=== PATIENT | female | born 1955 | race Caucasian/White ===

== ENCOUNTER → 2017-09-15 07:05 | Outpatient (CLI) | payer OTHER, SELFPAY ==
[2017-09-15 08:52] LABS: Hemoglobin A1C 6.4 % (0.0-7.0)
[2017-09-15 09:58] LABS: Ferritin 14 ng/mL (8-388)
== END ==
PROVIDERS: Visit Provider Internal Medicine Adolescent Medicine
DX: E11.9 Type 2 diabetes mellitus without complications (principal); Z83.49 Family history of other endocrine, nutritional and metabolic diseases
CPT/HCPCS: 82728; 83036

== ENCOUNTER → 2018-03-02 15:13 | Outpatient (CLI) | payer OTHER, SELFPAY ==
--- NOTE | 2018-03-02 15:16 | MM_ITS ---
MM Dig screening mamm BI w/CAD CAD Screening COMPARISON: Multiple previous studies dating back to December [id number] INDICATION: Routine screening. Takes Premarin/ progesterone. No new complaints. Family history. Aunt with breast cancer--age 50 TECHNIQUE: Standard CC and MLO images were obtained. R2 CAD reviewed. Note.: Images double read: Reviewed by both Dr. Klein & Dr. Ruffin in consultation FINDINGS: Heterogeneous Moderate density breast tissue pattern bilaterally. . There is some very subtle diffuse accentuation of fibroglandular elements compared to old studies from 2013, 2014 suspect reflects some exogenous hormone effect. RIGHT BREAST On MLO view note a 9 mm x 6 mm ovoid density labeled A, which is more apparent today than than on previous studies.. May reflect a small cyst or possibly merely a summation shadow. (Modest size breast cysts have been previously observed on ultrasound studies from 2011, 2010). I would suggest the patient return for spot MLO, 90 degree, & cc views; with subsequent right breast ultrasound On cc view there is a stable area of density labeled B.-This area Unchanged since multiple previous studies; as a small area at the deep lateral right on cc view LEFT BREAST. slightly accentuated breast fibroglandular elements slightly more evident at left left breast.. I suspect this reflects a combination of technique, & exogenous hormone effect. This subtle accentuation of fibroglandular elements most notable compared back to older studies from 2014 & 2013. With this there is perhaps subtle accentuation ductal elements and subtle more nodularity character of the fibroglandular pattern.. Specifically note small area of focal nodularity inferior left breast measuring 5 mm labeled X. This been seen previously slightly more evident today. I suspect it may reflect a small cyst. Also Suspect there are some slight generous ducts possible other smaller cyst at the central breast. Thus when the patient returns suggest a spot views area labeled X at the inferior left breast, along with left breast ultrasound further survey these subtle observations. note: This study was dictated with a voice-recognition system. There may be typographical error is related to such. If they are significant please notify us for corrections ---- IMPRESSION: 1. No prominent findings, but are some minor likely benign feature/observations bilaterally, which would benefit from bilateral spot views & bilateral breast ultrasound. 2. Right Breast:. Vague Ovoid area seen on MLO view, deep upper outer quadrant, labeled A.-. Warrants spot views & ultrasound 3. Left breast.. Tiny round 5 mm area inferior left breast slightly more apparent labeled X.-Warrant spot view & ultrasound 4. Suspect possible small cysts in the above mentioned areas (small cyst were noted on previous breast ultrasound ),, vs merely summation shadow. 5. Incidental note Subtle accentuation of fibroglandular elements bilaterally when compared back to 2014. This likely reflects mild exogenous hormone effect along with slight changes in technique BI-RADS Category: 0 Need Additional Imaging Evaluation. RECOMMENDED FOLLOW-UP: IMM - IMMEDIATE FOLLOW-UP RECOMMENDED (A letter has been sent to the patient regarding results of the study.)
== END ==
PROVIDERS: PCP Internal Medicine Adolescent Medicine; Visit Provider Obstetrics & Gynecology
DX: Z12.31 Encounter for screening mammogram for malignant neoplasm of breast (principal)
CPT/HCPCS: 77067

== ENCOUNTER → 2018-03-07 13:36 | Outpatient (CLI) | payer OTHER, SELFPAY ==
--- NOTE | 2018-03-07 13:37 | US_ITS ---
MM Dig mamm BI DX w/CAD, US breast RT complete, US breast LT complete . COMPARISON: . Recent screening mammogram 03/02/2018. Also April, 2013, 2012 ... December 2011 Ultrasound right breast Dec 2011 & 2010November 2009 INDICATION: Follow-up for further evaluation minimal nodularity bilaterally noted on recent screening mammogram . DIAGNOSTIC BILATERAL MAMMOGRAM with Spot views TECHNIQUE: Full 90 degree view both breast along with bilateral spot views:. Bilateral CC and MLO spot views. Spot right 90 degree view as well FINDINGS Moderate dense heterogeneous breast pattern bilaterally. Slight decrease sensitivity of mammography in breast of this character.. Mild asymmetry mammography. RIGHT BREAST. Small area of density noted at the deep axillary right breast prior MLO view, dissipates on today's 90 degree view.. This density/ possibly may reflect fluctuating cyst likely was present and this area back on 2010 2009 MLO view. Subsequent ultrasound shows multiple cysts including some in this area . scattered minimal nodularity elsewhere right breast very slightly more evident than previous studies. This likely in part reflects slight progression of scattered small cysts as confirm on subsequent ultrasound. Slightly higher contrast technique may also accentuate these and other elements. Other areas of minimal nodularity in part likely reflect small cysts possibly reflecting exogenous hormonal stimulation & can be followed LEFT BREAST: Scattered areas of minimal nodularity & density left breast. Majority of these is been seen previously The area labeled X is slightly more evident on today's study. However there was a feature here dating back to 2010 is noted.- Again may merely be accentuated summation shadow, particularly since we see no corresponding findings on ultrasound.. To be cautious would suggest follow-up left breast mammogram and ultrasound 6-7 months. Other scattered areas of minimal nodularity, density on left stable since studies dating back to even 2010 BILATERAL BREAST ULTRASOUND including Axillary Survey Ultrasound entire right & left breast including axillary survey RIGHT BREAST ULTRASOUND: small cysts more numerous throughout the right breast. Slightly more evident and numerous than previous ultrasound studies. 11:00: septated small cystic area measuring up to 8.7 mm. Matches Similar area seen 2011 towards central breast. 1:00: Small 5.4 mm length cyst 2:00. Tiny 4.2 mm cyst 6:00: Barely evident 3.2 mm cyst 9-10:00.: Outer breast. 2.9 mm cyst of May have been present on previous studies 10:00 outer breast 2.6 mm cyst 11:00. 3.4 mm cyst towards towards more central portion of the breast breast Axillary survey for scattered benign-appearing lymph nodes axilla, including most generous node measuring up to 4 cm length LEFT BREAST ULTRASOUND: . small cysts noted. 2:00: small 6.2 mm cyst mid zone breast 2:00 outer breast. 6.5 mm cyst. No cyst at nor solid feature inferior breast Axillary survey. Few small benign appearing axillary nodes. IMPRESSION......................... 1. Today's Bilateral breast ultrasound demonstrate scattered small cyst in both breasts. These are more numerous & evident right breast. These mainly accounts for slight increasing nodularity in both breast, particularly right breast.. May reflect the Premarin effect 2. LEFT BREAST:. Minimal focal density inferior left breast labeled X, has been seen before, only very slight more apparent on today's mammogram views (possibly due to technique)..-. No corresponding ultrasound Abnormality or findings seen in this area..... Would Suggest Follow-up Left breast ultrasound & mammogram 6 months to further evaluate o
== END ==
PROVIDERS: PCP Internal Medicine Adolescent Medicine; Visit Provider Obstetrics & Gynecology
DX: R92.8 Other abnormal and inconclusive findings on diagnostic imaging of breast (principal)
CPT/HCPCS: 76641; 77066

== ENCOUNTER → 2018-03-21 10:07 | Outpatient (CLI) | payer OTHER, SELFPAY ==
--- NOTE | 2018-03-21 10:09 | XR_ITS ---
XR knee RT 4V HISTORY: Right knee pain ITS.REASON: weightbearing ORDERING PHYSICIAN: Leda Soto MD PATIENT AGE: 62 years COMPARISON: 01/29/2010 FINDINGS: Weightbearing views are performed. There are mild to moderate osteoarthritic changes involving all 3 compartments slightly greatest at the lateral compartment with decrease in the joint space and osteophyte formation laterally and in the patellofemoral joint and slight decrease in the joint space medially. No fracture or dislocation. No lytic or blastic change. There is slight increased soft tissue density in the suprapatellar region which may indicate a small knee joint effusion. IMPRESSION: Mild to moderate osteoarthritic changes as described above which have progressed since 01/29/2010 with possible knee joint effusion
== END ==
PROVIDERS: PCP Internal Medicine Adolescent Medicine; Visit Provider Orthopaedic Surgery
DX: M25.561 Pain in right knee (principal)
CPT/HCPCS: 73564

== ENCOUNTER → 2018-07-19 10:40 | Outpatient (CLI) | payer OTHER, SELFPAY ==
--- NOTE | 2018-07-19 10:44 | CA_ITS ---
PROCEDURE: 2-D M-mode and color Doppler study INDICATIONS FOR THE TEST: Chest pain COPD Heart Murmur Tobacco Smoking Palpitations Fatigue Syncope Edema Hypertension Diabetes MellitusX Rheumatic Fever SOB GRIFFITH Obesity HyperlipidemiaX Family History HDX Additional History PATIENT INFORMATION HEIGHT: 62 WEIGHT:180 GENDER: Female B/P:120/78 2-D/M-MODE INTERPRETATION: 2-D MEASUREMENTS OBSERVED VALUES IN CMS Right Ventricular Dimension (RVDd) 1.9 Interventricular Septum (Thickness)(IVsd) .9 Left Ventricular Internal Dimensions(LVIDd) 5.4 Left Ventricular Posterior Wall (Thickness)(LVPWd) .8 Aortic Root 2.9 Aortic Cusp Separation 1.3 Left Atrial Dimensions (LAD) 3.1 2D 1. Left atrium is qualitatively mildly enlarged, left ventricle is normal size, there is no concentric left ventricular hypertrophy, visually estimated ejection fraction 55% with no regional wall motion abnormality. 2. Right atrium and right ventricle are normal size and contractility. 3. The aortic valve is minimally thickened and fibrosed. 4. The mitral valve has mild mitral annular calcification, there is no mitral stenosis. 5. The tricuspid valve is grossly normal. 6. The pulmonic valve is poorly visualized. 7. No significant pericardial effusion noted. DOPPLER INTERROGATION: Doppler interrogation of the aortic, mitral and tricuspid valvular presence of mild aortic, mild mitral and tricuspid regurgitation, tricuspid regurgitation jet velocity is inadequate for calculation of the right ventricular systolic pressure, grade 1 diastolic dysfunction seen without tissue Doppler evidence of raised left atrial pressure. CONCLUSION: 1. Mildly enlarged left atrium, normal left ventricular size, visually estimated ejection fraction 55% with no regional wall motion abnormality, grade 1 diastolic dysfunction seen without tissue Doppler evidence of raised left atrial pressure. 2. Thickened and calcified aortic valve consistent with aortic sclerosis, there is no aortic stenosis, there is mild aortic insufficiency. 3. Mitral annular calcification, there is no mitral stenosis, there is mild mitral regurgitation. 4. Mild tricuspid regurgitation. 5. No significant pericardial effusion noted.
== END ==
PROVIDERS: PCP Internal Medicine Adolescent Medicine; Visit Provider Physician Assistant
DX: R06.09 Other forms of dyspnea (principal)
CPT/HCPCS: 93306

== ENCOUNTER → 2018-07-21 08:05 | Outpatient (CLI) | payer OTHER, SELFPAY ==
--- NOTE | 2018-07-21 08:07 | CT_ITS ---
CT heart w calcium score INDICATION: ITS.REASON: GRIFFITH, Diabetes, FH of CAD ORDERING PHYSICIAN: NEGRITO Baird PATIENT AGE: 62 years COMPARISON: None TECHNIQUE: Axial images are obtained without contrast. Sagittal and coronal reformatted images are reviewed as well. All CT scans at the facility use one or more dose reduction, viz: automated exposure control, ma/kV adjustment per patient size (including targeted exams where dose is matched to indication, i.e. head), or iterative reconstruction technique. FINDINGS: Coronary artery calcium score is 4 indicating minimal plaque burden with low cardiovascular disease risk. IMPRESSION: Low cardiovascular disease risk with a coronary artery calcium score of 4
== END ==
PROVIDERS: PCP Internal Medicine Adolescent Medicine; Visit Provider Physician Assistant
DX: E11.9 Type 2 diabetes mellitus without complications (principal); R06.09 Other forms of dyspnea; Z82.49 Family history of ischemic heart disease and other diseases of the circulatory system
CPT/HCPCS: 75571

== ENCOUNTER → 2018-08-15 07:37 | Outpatient (CLI) | payer OTHER, SELFPAY | PROVIDERS: PCP Internal Medicine Adolescent Medicine; Visit Provider Internal Medicine Cardiovascular Disease | DX: G47.9 Sleep disorder, unspecified (principal); R40.0 Somnolence; R94.31 Abnormal electrocardiogram [ECG] [EKG]; R06.09 Other forms of dyspnea; E11.8 Type 2 diabetes mellitus with unspecified complications; E78.5 Hyperlipidemia, unspecified; I51.89 Other ill-defined heart diseases | CPT/HCPCS: 95806 ==

== ENCOUNTER → 2018-08-16 07:28 | Outpatient (CLI) | payer OTHER, SELFPAY ==
[2018-08-16 09:29] LABS: Hemoglobin A1C 6.6 % (0.0-7.0)
[2018-08-16 09:34] LABS: Ferritin 16 ng/mL (8-388)
== END ==
PROVIDERS: Visit Provider Internal Medicine Adolescent Medicine
DX: E11.9 Type 2 diabetes mellitus without complications (principal); Z83.49 Family history of other endocrine, nutritional and metabolic diseases
CPT/HCPCS: 82728; 83036

== ENCOUNTER → 2018-08-23 13:19 | Outpatient (POV) | payer OTHER, SELFPAY | PROVIDERS: Visit Provider Dermatology | DX: Z00.00 Encounter for general adult medical examination without abnormal findings (principal) ==

== ENCOUNTER → 2018-08-29 12:45 | Outpatient (CLI) | payer OTHER, SELFPAY ==
--- NOTE | 2018-08-29 12:48 | MM_ITS ---
MM Dig mamm BI DX w/CAD, US breast LT complete, US breast RT complete INDICATION: Follow-up abnormal mammogram, 6 month follow-up ORDERING PHYSICIAN: Edward Mccord MD PATIENT AGE: 62 years COMPARISON: 03/02/2018, 04/29/2016, 04/15/2015, 03/07/2018 TECHNIQUE: Standard images performed along with spot compression views and bilateral breast ultrasound FINDINGS: There is average fibroglandular tissue. Right breast: Scattered asymmetric densities are once again noted some of which efface out on spot compression views and other areas which are felt to be due to small cyst as noted on the ultrasound. Overall no significant change with no malignant appearing mass or malignant appearing microcalcification. Right breast ultrasound: There is a complex cystic nodule at 12:00 measuring 9 x 3 mm similar to the previous exam. At 1:00 there are 2 cystic nodules measuring 5 and 4 mm. A 5 x 3 mm cystic nodule present at 10:00. Small nodes are present in the axilla. Left breast:: Asymmetric densities are overall not significant changed. No malignant appearing mass or malignant appearing microcalcification. Left breast ultrasound: Multiple cysts includin mm hypoechoic nodule at 12:00 and 2 mm x 4 mm hypoechoic nodule 1:00. 4 mm hypoechoic nodule 2:00. 3 mm hypoechoic nodule 6:00. No suspicious solid lesions evident. IMPRESSION: Benign findings, no evidence of malignancy. Scattered areas of asymmetry once again noted not significant changed and felt to be due to combination of asymmetric fibroglandular tissue and small cysts some of which have a complex appearance. Benign findings. Recommend reason screening mammogram February 2019 BI-RADS Category: 2 Benign Finding(s) RECOMMENDED FOLLOW-UP: 6M - 6 MONTH FOLLOW-UP (A letter has been sent to the patient regarding results of the study.)
== END ==
PROVIDERS: PCP Internal Medicine Adolescent Medicine; Visit Provider Obstetrics & Gynecology
DX: R92.8 Other abnormal and inconclusive findings on diagnostic imaging of breast (principal)
CPT/HCPCS: 76641; 77066

== ENCOUNTER → 2018-08-30 14:59 | Outpatient (CLI) | payer OTHER, SELFPAY ==
[2018-08-30 16:30] LABS: Erythrocyte Sedimentation Rate 9 mm/hr (0-30)
== END ==
PROVIDERS: Visit Provider Internal Medicine Adolescent Medicine
DX: R51 Headache (principal)
CPT/HCPCS: 36415; 85651

== ENCOUNTER → 2018-09-02 11:45 | Outpatient (CLI) | payer OTHER, SELFPAY ==
--- NOTE | 2018-09-02 11:47 | MR_ITS ---
MR head/brain wo con HISTORY: ITS.REASON: DIZZINESS, HEADACHE ABOVE THE EYE, nausea ORDERING PHYSICIAN: Papito Escamilla MD PATIENT AGE: 62 years Comparison: None TECHNIQUE: Standard multiplanar multiecho sequences are performed without contrast. FINDINGS: No midline shift, mass effect, intracranial hemorrhage, or hydrocephalus is evident. The cerebellopontine angles, cerebellum, and brainstem are unremarkable. No evidence of acute infarction The pituitary, optic chiasm, corpus callosum, and craniocervical junction have an unremarkable appearance. There are a few scattered T2 white matter hyperintensities in the parietal lobes on both sides. These are nonspecific No sinus air-fluid level or mastoid effusion. No large aneurysms. The calvarium has an unremarkable appearance. IMPRESSION: 1. No acute intracranial findings. 2. There are minimal periventricular and subcortical T2 white matter hyperintensities within the parietal lobes which is nonspecific. Differential diagnosis would include ischemic gliotic change from microvascular disease versus migraine headache. Demyelinating process is felt to be less likely based on imaging characteristics.
== END ==
PROVIDERS: PCP Internal Medicine Adolescent Medicine; Visit Provider Internal Medicine Adolescent Medicine
DX: R42 Dizziness and giddiness (principal); R51 Headache
CPT/HCPCS: 70551

== ENCOUNTER → 2018-09-05 08:35 | Outpatient (CLI) | payer OTHER, SELFPAY ==
--- NOTE | 2018-09-05 08:40 | CI_ITS ---
Cerebrovascular Exam Indications: 780.4 Dizziness and giddiness. IMPRESSIONS 1. The bilateral vertebral arteries are patent with normal antegrade flow. 2. Study suggests less than 20% stenosis involving the right internal carotid artery and the left internal carotid artery. History: Risk factors: Hypertension. Diabetes mellitus. Carotid duplex study. Complete study and Doppler flow study including spectral analysis, color and mcpherson scale imaging. Location: Vascular laboratory. Patient status: Outpatient. Tables: Arterial flow: + +--------+--------+ Location V sys V ed + +--------+--------+ Right CCA - proximal 74.6cm/s 22cm/s + +--------+--------+ Right CCA - distal 69.9cm/s 18.1cm/s + +--------+--------+ Right ECA 121cm/s -------- + +--------+--------+ Right ICA - proximal 63.6cm/s 16.5cm/s + +--------+--------+ Right ICA - mid 84.9cm/s 33.8cm/s + +--------+--------+ Right ICA - distal 97.4cm/s 32.2cm/s + +--------+--------+ Right vertebral 40.1cm/s -------- + +--------+--------+ Left CCA - proximal 88cm/s 22.8cm/s + +--------+--------+ Left CCA - distal 71.5cm/s 21.2cm/s + +--------+--------+ Left ECA 91.1cm/s -------- + +--------+--------+ Left ICA - proximal 78.6cm/s 20.4cm/s + +--------+--------+ Left ICA - mid 79.4cm/s 28.3cm/s + +--------+--------+ Left ICA - distal 79.4cm/s 29.1cm/s + +--------+--------+ Left vertebral 41.6cm/s -------- + +--------+--------+ Velocity ratios: + + + + + + Right, V sys Right, V ed Left, V sys Left, V ed + + + + + + Max ICA/dist CCA 1.39 1.87 1.11 1.37 + + + + + + (Report amended ) Electronically signed by: James Rainey [id number]
== END ==
PROVIDERS: PCP Internal Medicine Adolescent Medicine; Visit Provider Internal Medicine Adolescent Medicine
DX: R42 Dizziness and giddiness (principal); R51 Headache
CPT/HCPCS: 93880

== ENCOUNTER → 2018-09-27 09:04 | Outpatient (POV) | payer OTHER, SELFPAY | PROVIDERS: Visit Provider Dermatology | DX: Z00.00 Encounter for general adult medical examination without abnormal findings (principal) ==

== ENCOUNTER → 2019-02-20 09:41 | Outpatient (CLI) | payer OTHER, SELFPAY ==
--- NOTE | 2019-02-20 | CT_ITS ---
PROCEDURE: CT ABDOMEN PELVIS WO/W CON CLINICAL INDICATION: Epigastric pain, right upper quadrant pain COMPARISON: HEARTWCAL CT heart w calcium score from 07/21/2018 TECHNIQUE: IV Contrast: 75ML OPTIRAY 350 Oral Contrast 450ml Redicat Axial images obtained with sagittal and coronal reformats. All CT scans at the facility use one or more dose reduction, viz: automated exposure control, ma/kV adjustment per patient size (including targeted exams where dose is matched to indication, i.e. head), or iterative reconstruction technique. FINDINGS: Exam is performed without and with contrast with delayed images obtained of the kidneys. The lung bases are clear. Suspect a small hiatal hernia. There are a few calcified nodes in the left hilum and a small focus of calcification along the inferior aspect of the left mitral valve plane. Post cholecystectomy change. The liver, spleen, and adrenal glands have an unremarkable appearance. There is mild fatty infiltration of the pancreas. There is minimal haziness of the fat around the head of the pancreas and along the medial aspect of the descending duodenum suspicious for mild pancreatitis. No peripancreatic fluid collections or phlegmonous change. No pancreatic mass or peripancreatic fluid collection evident. No renal or ureteral calculi are evident. There is a 4 by 2 cm cyst involving the mid aspect of the left kidney Unremarkable appendix. No intestinal obstruction or free air. There is a minimally prominent small bowel loop in the mid abdominal region with an air-fluid level. This is nonspecific. There are few colonic diverticula of the descending and sigmoid colon. No evidence of diverticulitis. The uterus has a somewhat bulky lobular appearance suspicious for or fibroid involvement with an area of decreased density in the left aspect of the uterus at 4.5 by 4.2 cm consistent with a fibroid. No cul-de-sac fluid evident. There is degenerative disc disease at L4-5 with mild degenerative disc disease in the lower thoracic spine. No acute bony abnormality. Minor osteoarthritic changes are present in the hips. IMPRESSION: 1. Possible mild pancreatitis at the head of the pancreas with mild fatty infiltration of the pancreas. 2. Other nonacute findings which include possible small hiatal hernia, left renal cyst, fibroid involvement of the uterus, and diverticulosis of the sigmoid colon. Dictated by: James Rainey MD 02/20/2019 13:50 Electronically signed by James Rainey MD in [facility] 02/20/2019 13:50
[2019-02-20 09:57] LABS: Basophils % 0.5 % (0.1-2.0); Eosinophils # 0.1 K/mm3 (0.0-0.4); Eosinophils % 1.3 % (0.1-12.0); Hematocrit 44.7 % (37.0-47.0); Hemoglobin 14.8 g/dL (12.2-16.2); Lymphocytes # 2.1 K/mm3 (0.7-4.5); Lymphocytes % 25.8 % (10-50); Mean Corpuscular HGB Conc 33.1 g/dL (31.8-35.4); Mean Corpuscular Hemoglobin 30.6 pg (27.0-31.2); Mean Corpuscular Volume 92.4 fl (81-99); Mean Platelet Volume 8.3 fl (7.4-10.4); Monocytes # 0.4 K/mm3 (0.1-1.0); Monocytes % 5.2 % (1.7-9.3); Neutrophils # 5.4 K/mm3 (1.8-7.8); Neutrophils % 67.1 % (37.0-80.0); Platelet Count 268 K/mm3 (142-424); Red Blood Count 4.83 M/mm3 (4.20-5.40); White Blood Count 8.1 K/mm3 (4.8-10.8)
[2019-02-20 10:05] LABS: Alanine Aminotransferase 17 U/L (12-78); Albumin Level 3.6 gm/dL (3.4-5.0); Alkaline Phosphatase 87 U/L (46-116); Amylase 39 U/L (25-115); Anion Gap 10.7 mEq/L (5-15); Aspartate Amino Transferase 16 U/L (15-37); Bilirubin,Total 0.5 mg/dL (0.2-1.0); Blood Urea Nitrogen 9 mg/dL (7-18); Calcium 8.9 mg/dL (8.5-10.1); Carbon Dioxide 29 mmol/L (21.0-32.0); Chloride 104 mmol/L (98-107); Estimated Glomerular Filt Rate 84 ml/min (>60); GFR (African American) 102 ML/MIN (>60); Globulin 3.5 gm/dl (1.3-3.2); Glucose 109 mg/dL (74-106); Lipase 65 u/L (73-393); Potassium 3.7 mmoL/L (3.5-5.1); Sodium 140 mmol/L (136-145); Total Protein,Serum 7.1 gm/dL (6.4-8.2)
[2019-02-20 12:39] LABS: Hemoglobin A1C 6.1 % (0.0-7.0)
== END ==
PROVIDERS: Visit Provider Internal Medicine Adolescent Medicine
DX: R10.13 Epigastric pain (principal); R10.11 Right upper quadrant pain
CPT/HCPCS: 36415; 74178; 80053; 82150; 83036; 83690; 85025; Q9967

== ENCOUNTER → 2019-02-21 08:52 | Outpatient (POV) | payer OTHER, SELFPAY | PROVIDERS: Visit Provider Dermatology | DX: Z00.00 Encounter for general adult medical examination without abnormal findings (principal) ==

== ENCOUNTER → 2019-03-28 13:14 | Outpatient (CLI) | payer OTHER, SELFPAY ==
--- NOTE | 2019-03-28 13:18 | XR_ITS ---
PROCEDURE: XR DEXA AXIAL SKELETON CLINICAL HISTORY: screening COMPARISON: No exams were available for comparison FINDINGS: The L1-L4 density is 1.308 grams/centimeters sq with a T-score of 1.1. Right femoral neck density is 0.806 grams/centimeters sq with T-score of -1 7. IMPRESSION: Osteopenia with moderate fracture risk. Treatment advised. Suggest follow-up exam March 2021 Dictated by: James Rainey MD 03/28/2019 15:54 Electronically signed by James Rainey MD in [facility] 03/28/2019 15:54
== END ==
PROVIDERS: PCP Internal Medicine Adolescent Medicine; Visit Provider Obstetrics & Gynecology
DX: Z78.0 Asymptomatic menopausal state (principal)
CPT/HCPCS: 77080

== ENCOUNTER → 2019-06-07 07:39 | Outpatient (CLI) | payer OTHER, SELFPAY ==
[2019-06-07 08:35] LABS: Hemoglobin A1C 6.8 % (0.0-7.0)
[2019-06-07 09:42] LABS: Alanine Aminotransferase 35 U/L (9-52); Albumin Level 3.6 g/dL (3.4-5.0); Albumin/Globulin Ratio 1.1 (1.1-1.8); Alkaline Phosphatase 96 U/L (46-116); Anion Gap 12.3 mEq/L (5-15); Aspartate Amino Transferase 24 U/L (15-37); Bilirubin,Total 0.4 mg/dL (0.2-1.0); Blood Urea Nitrogen 12 mg/dL (7-18); Calcium 9.1 mg/dL (8.5-10.1); Carbon Dioxide 28 mmol/L (21.0-32.0); Chloride 105 mmol/L (98-107); Chol/HDL Ratio 2.7 (1-3.5); Cholesterol 177 mg/dL (140-200); Estimated Glomerular Filt Rate 84 ml/min (>60); GFR (African American) 102 ML/MIN (>60); Globulin 3.2 gm/dl (1.3-3.2); Glucose 161 mg/dL (74-106); HDL Cholesterol 66 mg/dL (29-89); LDL Cholesterol 97 mg/dL (0-130); Potassium 4.3 mmoL/L (3.5-5.1); Sodium 141 mmol/L (137-145); Total Protein,Serum 6.8 g/dL (6.4-8.2); Triglycerides 72 mg/dL (30-200); VLDL Cholesterol 14 mg/dL (0-40)
== END ==
PROVIDERS: Visit Provider Internal Medicine Adolescent Medicine
DX: E78.5 Hyperlipidemia, unspecified (principal); E11.9 Type 2 diabetes mellitus without complications; Z79.84 Long term (current) use of oral hypoglycemic drugs
CPT/HCPCS: 36415; 80053; 80061; 83036

== ENCOUNTER → 2019-06-07 14:05 | Outpatient (POV) | payer OTHER, SELFPAY | PROVIDERS: PCP Internal Medicine Adolescent Medicine | DX: Z00.00 Encounter for general adult medical examination without abnormal findings (principal) ==

== ENCOUNTER → 2019-08-31 13:54 | Outpatient (CLI) | payer OTHER, SELFPAY ==
--- NOTE | 2019-08-31 13:56 | MM_ITS ---
PROCEDURE: MM DIG SCREENING MAMM BI W/CAD Digital Breast Tomosynthesis Included CLINICAL INDICATION: SCREENING There is a history of breast cancer in the patient's maternal aunt diagnosed after menopause. COMPARISON: [facility] MM Dig screening mamm BI w/CAD from 03/02/2018 [facility] MM Dig mamm BI DX w/CAD from 03/07/2018 DIG MAMM-DX JOLLY from 08/29/2018 TECHNIQUE: Standard CC and MLO images and 3D Tomosynthesis was obtained. R2 CAD reviewed. FINDINGS: Scattered fibroglandular densities are seen in the central portions of both breasts. There are couple of benign-appearing microcalcifications left breast. There is stable mild nodularity in both breasts confirmed with javed images. There is no suspicious lesion and no suspicious microcalcifications. There is faint arterial calcification right breast. IMPRESSION: Stable exam with no suspicious lesions seen BI-RAD Category: 2 Benign Finding(s) FOLLOW-UP: 1YR 1 Year Follow-up (A letter has been sent to the patient regarding results of the study.) Dictated by: Dr. Angel Ruffin MD 09/03/2019 17:[address] Angel Ruffin MD in [place] 09/03/2019 17:35
== END ==
PROVIDERS: PCP Internal Medicine Adolescent Medicine; Visit Provider Internal Medicine Adolescent Medicine
DX: Z12.31 Encounter for screening mammogram for malignant neoplasm of breast (principal)
CPT/HCPCS: 77063; 77067

== ENCOUNTER → 2019-09-11 07:26 | Outpatient (CLI) | payer OTHER, SELFPAY ==
[2019-09-11 08:27] LABS: Hemoglobin A1C 6.6 % (4.0-6.0)
== END ==
PROVIDERS: Visit Provider Internal Medicine Adolescent Medicine
DX: E11.9 Type 2 diabetes mellitus without complications (principal)
CPT/HCPCS: 36415; 83036

== ENCOUNTER → 2019-11-28 09:24 | Outpatient (POV) | payer OTHER, SELFPAY | PROVIDERS: Visit Provider Dermatology | DX: Z00.00 Encounter for general adult medical examination without abnormal findings (principal) ==

== ENCOUNTER → 2020-01-05 12:15 | Outpatient (CLI) | payer OTHER, SELFPAY ==
[2020-01-05 13:27] LABS: Coronavirus 19 IgG Antibody Negative (Negative); Coronavirus 19 IgM Antibody Negative (Negative)
[2020-01-05 14:28] LABS: Hemoglobin A1C 7.1 % (4.0-6.0)
[2020-01-05 16:15] LABS: Ferritin 91.8 ng/ml (11.1-264)
== END ==
PROVIDERS: Visit Provider Internal Medicine Adolescent Medicine
DX: Z03.818 Encounter for observation for suspected exposure to other biological agents ruled out (principal); E11.9 Type 2 diabetes mellitus without complications
CPT/HCPCS: 82728; 83036; 86328

== ENCOUNTER 2020-01-23 14:00 | Outpatient (RCR) | payer OTHER, SELFPAY ==
--- NOTE | 2020-01-08 15:05 | HMH.PTOPEV ---
PT Outpatient Evaluation Rehab PT Outpatient Evaluation Start: 01/08/20 14:41 Freq: Status: Active Protocol: Document 01/08/20 14:41 ISISHYUN (Rec: 01/08/20 15:05 [email or web address] [id number]) Electronically Signed By Dino Cheatham PT 01/08/20 14:41 Outpatient Therapy Subjective History Subjective History This is the initial Physical Therapy evaluation for Amaya Barker. Pt is a 64 y/o female referred to PT for c/o R Knee pain. Pt reports she began having pain ~ 2 years ago after vacation with long walks on the beach Pt reports after vacation she began noticing some pain and swelling in knee. Pt reports pain has been intermittant since then. Pt reports most recent bout began ~ 2 weeks ago. Pt reports she has been up on her feet for extended periods in the last few weeks. Pt reports she started noticing increased pain last week during water aerobics. Pt had x-ray and ortho consult , radiograph showed lateral compartment OA and nathaniel on bone per pt, Ortho consult argeed. Chief Complaint Pain,Swelling Symptom Type Ache,Throb,Dull Symptoms Relieved By Rest/Positioning,Heat,Ice,OTC Meds,Prescription Meds Symptoms Aggravated By Physical Activity,Walking Prior Functional Limitations None Current Functional Limitations Squatting,Recreation Activity, Walking,Stairs Symptom Description Intermittent Level of pain today (0-10) 4 Pain scale - at its best (0-10) 0 Pain scale - at its worst (0-10) 7 Hip/Knee Eval Gait Observation General Gait Pattern Observation Antalgic Gait Assistive Device Assistive Devices None / NA Palpation Tenderness right Knee Palpation Finding Tenderness Knee Palpation Overall Comment TTP med/lat jt line, pes anserine, subpatellar tendon bursa MMT left Hip Abduction Strength Grade 4 Good Hip External Rotation Strength Grade 4 Good Hip Internal Rotation Strength Grade 4 Good Knee Extension Strength Grade 4 Good Knee Flexion Strength Grade
== END 2020-01-23 14:54 | disposition home or self-care (01) ==
LOC: PT 14:00
PROVIDERS: Visit Provider Internal Medicine Adolescent Medicine
DX: M25.561 Pain in right knee (principal)
CPT/HCPCS: 97010; 97014; 97035; 97110; 97140; 97163; G0283

== ENCOUNTER → 2020-07-03 09:03 | Outpatient (CLI) | payer OTHER, SELFPAY ==
--- NOTE | 2020-07-03 | XR_ITS ---
PROCEDURE: XR SHOULDER RT MIN 2V CLINICAL INDICATION: FALL, SHOULDER PAIN COMPARISON: CR SHOU3R [id number] VIEWS from 02/05/2015 CR SHOU3L [id number] VIEWS from 02/05/2015 FINDINGS: No fracture or dislocation. No lytic or blastic change. There is normal mineralization. There mild osteoarthritic changes of the acromioclavicular joint and glenohumeral joint. Other findings:None. IMPRESSION: Minimal osteoarthritic change otherwise negative. Dictated by: James Rainey MD 07/03/2020 09:28 James Rainey MD in [place] 07/03/2020 09:28
== END ==
PROVIDERS: PCP Internal Medicine Adolescent Medicine; Visit Provider Internal Medicine Adolescent Medicine
DX: M25.511 Pain in right shoulder (principal); M25.532 Pain in left wrist; W19.XXXA Unspecified fall, initial encounter
CPT/HCPCS: 73030

== ENCOUNTER → 2020-07-16 07:11 | Outpatient (CLI) | payer OTHER, SELFPAY ==
[2020-07-16 07:26] LABS: Basophils # 0.1 K/mm3 (0-0.2); Basophils % 0.9 % (0.1-2.0); Eosinophils # 0.3 K/mm3 (0.0-0.4); Eosinophils % 3.8 % (0.1-12.0); Hematocrit 41.2 % (37.0-47.0); Hemoglobin 13.3 g/dL (12.2-16.2); Lymphocytes # 2.9 K/mm3 (0.7-4.5); Lymphocytes % 34.4 % (10-50); Mean Corpuscular HGB Conc 32.4 g/dL (31.8-35.4); Mean Corpuscular Hemoglobin 29.7 pg (27.0-31.2); Mean Corpuscular Volume 91.7 fl (81-99); Mean Platelet Volume 7.7 fl (7.4-10.4); Monocytes # 0.4 K/mm3 (0.1-1.0); Monocytes % 4.6 % (1.7-9.3); Neutrophils # 4.8 K/mm3 (1.8-7.8); Neutrophils % 56.3 % (37.0-80.0); Platelet Count 335 K/mm3 (142-424); Red Blood Count 4.49 M/mm3 (4.20-5.40); Red Cell Distribution Width 13.1 % (11.5-17.5); White Blood Count 8.4 K/mm3 (4.8-10.8)
[2020-07-16 07:49] LABS: Hemoglobin A1C 7.7 % (4.0-6.0)
[2020-07-16 08:02] LABS: Alanine Aminotransferase 17 U/L (12-78); Albumin Level 3.9 g/dl (3.5-5.0); Albumin/Globulin Ratio 1.3 (1.1-1.8); Alkaline Phosphatase 104 U/L (38-126); Amylase 46 U/L (30-110); Anion Gap 12.1 mEq/L (5-15); Aspartate Amino Transferase 24 U/L (14-36); Bilirubin,Total 0.3 mg/dl (0.2-1.3); Blood Urea Nitrogen 15 mg/dl (7-17); Calcium 9.5 mg/dl (8.4-10.2); Carbon Dioxide 25 mmol/L (22.0-30.0); Chloride 106 mmol/L (98-107); Chol/HDL Ratio 3.5 (1-3.5); Cholesterol 174 mg/dl (140-200); Estimated Glomerular Filt Rate 100 ml/min (>60); GFR (African American) 121 ML/MIN (>60); Globulin 2.9 g/dL (1.3-3.2); Glucose 184 mg/dl (74-100); HDL Cholesterol 50 mg/dl (40-60); Lipase 38 U/L (23-300); Potassium 4.1 mmoL/L (3.5-5.1); Sodium 139 mmol/L (136-145); Total Protein,Serum 6.8 g/dl (6.3-8.2); Triglycerides 182 mg/dl (30-150); VLDL Cholesterol 36 mg/dL (0-40)
[2020-07-16 08:13] LABS: Direct LDL Cholesterol 89.23 mg/dL (100-129)
== END ==
PROVIDERS: Visit Provider Internal Medicine Adolescent Medicine
DX: R10.13 Epigastric pain (principal); E11.9 Type 2 diabetes mellitus without complications; E78.5 Hyperlipidemia, unspecified; Z79.84 Long term (current) use of oral hypoglycemic drugs
CPT/HCPCS: 36415; 80053; 80061; 82150; 83036; 83690; 85025

== ENCOUNTER → 2020-09-12 16:16 | Outpatient (CLI) | payer MEDICARE, SELFPAY ==
--- NOTE | 2020-09-12 16:16 | MM_ITS ---
PROCEDURE: MM DIG SCREENING MAMM BI W/CAD Digital Breast Tomosynthesis Included CLINICAL INDICATION: screening Screening for breast cancer COMPARISON: [facility] MM Dig mamm BI DX w/CAD from 03/07/2018 MG DIG MAMM-DX JOLLY from 08/29/2018 MG MM DIG SCREENING MAMM BI W/CAD from 08/31/2019 TECHNIQUE: Standard CC and MLO images and 3D Tomosynthesis was obtained. R2 CAD reviewed. FINDINGS: There is average fibroglandular tissue. There are 2 benign-appearing nodules in the medial aspect of the right breast at 5 mm each not significantly changed. Cysts were noted in this region on previous ultrasound. The left breast has an unremarkable appearance. Benign-appearing calcifications are noted. Benign-appearing nodular density in the medial aspect of the left breast is noted at 4 mm unchanged. Benign-appearing nodular density in the central left breast at 3 mm unchanged. IMPRESSION: BI-RAD Category: 2 Benign Finding FOLLOW-UP: 1 YR 1 Year Follow-up (A letter has been sent to the patient regarding results of the study.) Dictated by: James Rainey MD 09/13/2020 11:16 James Rainey MD in [facility] 09/13/2020 11:16
== END ==
PROVIDERS: PCP Internal Medicine Adolescent Medicine; Visit Provider Obstetrics & Gynecology
DX: Z12.31 Encounter for screening mammogram for malignant neoplasm of breast (principal)
CPT/HCPCS: 77063; 77067

== ENCOUNTER 2020-11-22 16:32 | Emergency (ER) | payer MEDICARE, SELFPAY ==
[2020-11-22 16:39] VITALS: BP 155/87; PULSE 113; RESP 16; TEMP 36.4; O2SAT 97; BMI 31.2
--- NOTE | 2020-11-22 16:48 | HMH.EDUTC ---
[facility] Disposition Clinical Impression: Sinusitis Qualifiers: Sinusitis location: unspecified location Chronicity: unspecified Qualified Code(s): J32.9 - Chronic sinusitis, unspecified Disposition: Home, Self-Care Condition on Discharge: Good Instructions: Sinusitis, DI for Sinusitis Additional Instructions: Start antibiotic. Sinus infections may take 2-3 days to notice much improvement so be sure to use conservative measures as discussed for symptoms Flonase 2 spray in each nostril daily to help with nasal congestion, sinus an ear pressure/inflammation Lots of Fluids Sleep elevated Humidifer/vaporizer Augmentin can cause GI effects. Probiotics may help to prevent these symptoms Follow up with family doctor if no improvement or any worsening of symptoms Prescriptions: Amoxicillin/Potassium Clav [Augmentin 875-125 Tablet] 1 tab PO Q12H 7 Days #14 tab Transmission Status: Received by [facility] Referrals: Papito Escamilla MD [Primary Care Provider] - As needed Time of Disposition: 17:02 Medical Decision Making - Gage Inquiry Pt receiving controlled substance: No Gage was queried for this patient: No Vital Signs: 11/22/20 16:39 11/22/20 17:01 Temperature 97.6 F 97.6 F Temperature Source Oral Pulse Rate 113 H Pulse Rate [Left] 113 H Respiratory Rate 16 16 Blood Pressure 155/87 H Blood Pressure [Right Arm] 155/87 H Blood Pressure Mean [Right Arm] 109 Blood Pressure Source [Right Arm] Automatic Cuff 02 Sat by Pulse Oximetry 97 Oxygen Delivery Method Room Air Orders (Tests/Meds): ED MEDICATIONS Discontinued Medications Generic Name Dose Route Start Last Admin Trade Name Estradaq PRN Reason Stop Dose Admin Ceftriaxone Sodium 1 gm 11/22/20 16:52 11/22/20 17:00 Ceftriaxone 1gm Vial IM 11/22/20 16:53 1 gm ONCE ONE Administration Protocol Lidocaine HCl 0 ml 11/22/20 16:52 11/22/20 17:00 Lidocaine 1% 5ml Pf Vial IM 11/22/20 16:53 2.5 ml ONCE ONE Administration Methylprednisolone Sodium Succinate 125 mg 11/22/20 16:52 11/22/20 16:59 Methylprednisolone Sod Succ 125mg Vial IM 11/22/20 16:53 125 mg ONCE ONE Administration [facility] HPI - General Stated complaint: sinusitis Time Seen by Provider: 11/22/20 16:48 Mode of Arrival: Ambulatory Source of Information: Patient Limitations: No Limitations Description of Symptoms (Recalled from Triage Doc. by RN): pt c/o sinusitis, R head pain, teeth pain, sneezing, and copious secretions. HEENT Symptoms (Recalled from RN notes): Yes (sinus drainage, [place], teeth pain, sneezing) Resp Symptoms (Recalled from RN notes): No Skin Symptoms (Recalled from RN notes): No MS Symptoms (Recalled from RN notes): No Functional Status (Recalled from RN notes): na - History of Present Illness Provider Complaint: Patient states that she gets sinusitis about every year State that she has been having sinus pain and pressure and had some swelling under her eyes and has been using ice to help with the swelling and pain, State that she has been having pressure like feeling in her teeth, sneezing and blowing out alot of mucous States that today it was still hurting and worse so she came in to get checked - Related Data Home Medications Medication Instructions Recorded Confirmed montelukast 10 mg tablet 10 mg PO QPM 03/11/18 05/23/19 Aspirin [Aspir 81] 81 mg PO DAILY 05/23/19 05/23/19 Fluticasone Propionate [Flovent 2 puffs PO BID 05/23/19 05/23/19 Hfa 110mcg Inhaler] glimepiride 2 mg tablet 2 mg PO DAILY 03/14/20 rosuvastatin 5 mg tablet 10 mg PO DAILY tab 03/14/20 sitagliptin 50 mg-metformin ER 1 tab PO HS 03/14/20 1,000 mg tablet,extended release 24h mp Previous Rx's Medication Instructions Recorded hydrocortisone 2.5 % topical cream 1 applic VT QD-BID PRN #30 g 05/30/19 with perineal applicator raloxifene 60 mg tablet 60 mg PO DAILY #60 tab 02/28/20 albuterol sulfate 90 mcg/actuation 2 puff INHALATION
[2020-11-22 17:01] VITALS: BP 155/87; PULSE 113; RESP 16; TEMP 36.4
== END 2020-11-22 17:11 | disposition home or self-care (01) ==
PROVIDERS: Emergency Provider Nurse Practitioner; PCP Internal Medicine Adolescent Medicine
DX: J32.9 Chronic sinusitis, unspecified (principal); K21.9 Gastro-esophageal reflux disease without esophagitis; E11.9 Type 2 diabetes mellitus without complications; E78.5 Hyperlipidemia, unspecified; I10 Essential (primary) hypertension; Z79.899 Other long term (current) drug therapy
CPT/HCPCS: G0463; 96372; 99202

== ENCOUNTER → 2021-01-28 08:38 | Outpatient (POV) | payer MEDICARE, SELFPAY | PROVIDERS: Visit Provider Dermatology | DX: Z00.00 Encounter for general adult medical examination without abnormal findings (principal) ==

== ENCOUNTER → 2021-02-11 07:13 | Outpatient (CLI) | payer MEDICARE, SELFPAY ==
[2021-02-11 07:32] LABS: Basophils # 0.1 K/mm3 (0-0.2); Basophils % 0.7 % (0.1-2.0); Eosinophils # 0.5 K/mm3 (0.0-0.4); Eosinophils % 5.4 % (0.1-12.0); Hematocrit 39.9 % (37.0-47.0); Lymphocytes # 3.1 K/mm3 (0.7-4.5); Lymphocytes % 33.7 % (10-50); Mean Corpuscular Hemoglobin 26.3 pg (27.0-31.2); Mean Corpuscular Volume 87.5 fl (81-99); Monocytes # 0.5 K/mm3 (0.1-1.0); Monocytes % 5.4 % (1.7-9.3); Neutrophils # 5.1 K/mm3 (1.8-7.8); Neutrophils % 54.7 % (37.0-80.0); Platelet Count 344 K/mm3 (142-424); Red Blood Count 4.56 M/mm3 (4.20-5.40); Red Cell Distribution Width 13.3 % (11.5-17.5); White Blood Count 9.3 K/mm3 (4.8-10.8)
[2021-02-11 08:15] LABS: Chloride 106 mmol/L (98-107)
[2021-02-11 08:16] LABS: Potassium 4.1 mmoL/L (3.5-5.1); Sodium 139 mmol/L (136-145)
[2021-02-11 08:18] LABS: Alanine Aminotransferase 13 U/L (12-78); Alkaline Phosphatase 88 U/L (38-126); Anion Gap 12.1 mEq/L (5-15); Aspartate Amino Transferase 25 U/L (14-36); Blood Urea Nitrogen 10 mg/dl (7-17); Carbon Dioxide 25 mmol/L (22.0-30.0); Estimated Glomerular Filt Rate 100 ml/min (>60); GFR (African American) 121 ML/MIN (>60)
[2021-02-11 08:19] LABS: Albumin Level 3.6 g/dl (3.5-5.0); Albumin/Globulin Ratio 1.3 (1.1-1.8); Calcium 8.8 mg/dl (8.4-10.2); Chol/HDL Ratio 3.9 (1-3.5); Cholesterol 153 mg/dl (140-200); Globulin 2.8 g/dL (1.3-3.2); Glucose 164 mg/dl (74-100); HDL Cholesterol 39 mg/dl (40-60); Hemoglobin A1C 10.7 % (4.0-6.0); Total Protein,Serum 6.4 g/dl (6.3-8.2); Triglycerides 139 mg/dl (30-150); VLDL Cholesterol 28 mg/dL (0-40)
[2021-02-11 08:20] LABS: Bilirubin,Total 0.1 mg/dl (0.2-1.3)
[2021-02-11 08:30] LABS: Direct LDL Cholesterol 84.32 mg/dL (100-129)
== END ==
PROVIDERS: Visit Provider Internal Medicine Adolescent Medicine
DX: E11.9 Type 2 diabetes mellitus without complications (principal); E78.5 Hyperlipidemia, unspecified; Z79.84 Long term (current) use of oral hypoglycemic drugs
CPT/HCPCS: 36415; 80053; 80061; 83036; 85025

== ENCOUNTER → 2021-05-06 11:18 | Outpatient (CLI) | payer MEDICARE, SELFPAY ==
[2021-05-06 12:09] LABS: Basophils # 0.1 K/mm3 (0-0.2); Basophils % 1.1 % (0.1-2.0); Eosinophils # 0.4 K/mm3 (0.0-0.4); Eosinophils % 4.2 % (0.1-12.0); Hematocrit 41.5 % (37.0-47.0); Hemoglobin 13.1 g/dL (12.2-16.2); Lymphocytes # 2.8 K/mm3 (0.7-4.5); Lymphocytes % 30.7 % (10-50); Mean Corpuscular HGB Conc 31.6 g/dL (31.8-35.4); Mean Corpuscular Hemoglobin 26.3 pg (27.0-31.2); Mean Corpuscular Volume 83.4 fl (81-99); Mean Platelet Volume 8.8 fl (7.4-10.4); Monocytes # 0.4 K/mm3 (0.1-1.0); Monocytes % 4.4 % (1.7-9.3); Neutrophils # 5.4 K/mm3 (1.8-7.8); Neutrophils % 59.6 % (37.0-80.0); Platelet Count 364 K/mm3 (142-424); Red Blood Count 4.98 M/mm3 (4.20-5.40); Red Cell Distribution Width 16.3 % (11.5-17.5)
[2021-05-06 12:35] LABS: Alanine Aminotransferase 17 U/L (12-78); Albumin Level 4.3 g/dl (3.5-5.0); Albumin/Globulin Ratio 1.6 (1.1-1.8); Alkaline Phosphatase 82 U/L (38-126); Anion Gap 11.1 mEq/L (5-15); Aspartate Amino Transferase 30 U/L (14-36); Bilirubin,Total 0.4 mg/dl (0.2-1.3); Blood Urea Nitrogen 15 mg/dl (7-17); Calcium 9.6 mg/dl (8.4-10.2); Carbon Dioxide 30 mmol/L (22.0-30.0); Chloride 102 mmol/L (98-107); Chol/HDL Ratio 3.5 (1-3.5); Cholesterol 166 mg/dl (140-200); Estimated Glomerular Filt Rate 83 ml/min (>60); GFR (African American) 101 ML/MIN (>60); Globulin 2.7 g/dL (1.3-3.2); Glucose 153 mg/dl (74-100); HDL Cholesterol 47 mg/dl (40-60); Potassium 4.1 mmoL/L (3.5-5.1); Sodium 139 mmol/L (136-145); Triglycerides 148 mg/dl (30-150); VLDL Cholesterol 30 mg/dL (0-40)
[2021-05-06 12:47] LABS: Direct LDL Cholesterol 91.61 mg/dL (100-129)
[2021-05-06 13:13] LABS: Hemoglobin A1C 7.2 % (4.0-6.0)
== END ==
PROVIDERS: PCP Internal Medicine Adolescent Medicine; Visit Provider Internal Medicine Adolescent Medicine
DX: E11.9 Type 2 diabetes mellitus without complications (principal); Z79.84 Long term (current) use of oral hypoglycemic drugs
CPT/HCPCS: 36415; 80053; 80061; 83036; 85025

== ENCOUNTER → 2021-09-04 16:01 | Outpatient (CLI) | payer MEDICARE, SELFPAY ==
[2021-09-04 16:35] LABS: Basophils # 0.1 K/mm3 (0-0.2); Basophils % 1.7 % (0.1-2.0); Eosinophils # 0.1 K/mm3 (0.0-0.4); Eosinophils % 2.1 % (0.1-12.0); Hematocrit 41.1 % (37.0-47.0); Hemoglobin 13.5 g/dL (12.2-16.2); Lymphocytes # 2.6 K/mm3 (0.7-4.5); Lymphocytes % 38.2 % (10-50); Mean Corpuscular HGB Conc 32.9 g/dL (31.8-35.4); Mean Corpuscular Hemoglobin 27.4 pg (27.0-31.2); Mean Corpuscular Volume 83.3 fl (81-99); Mean Platelet Volume 8.9 fl (7.4-10.4); Monocytes # 0.6 K/mm3 (0.1-1.0); Monocytes % 8.4 % (1.7-9.3); Neutrophils # 3.4 K/mm3 (1.8-7.8); Neutrophils % 49.6 % (37.0-80.0); Platelet Count 294 K/mm3 (142-424); Red Blood Count 4.93 M/mm3 (4.20-5.40); Red Cell Distribution Width 15.9 % (11.5-17.5); White Blood Count 6.9 K/mm3 (4.8-10.8)
[2021-09-04 17:06] LABS: Alanine Aminotransferase 28 U/L (12-78); Albumin/Globulin Ratio 1.5 (1.1-1.8); Alkaline Phosphatase 110 U/L (38-126); Anion Gap 9.8 mEq/L (5-15); Aspartate Amino Transferase 42 U/L (14-36); Blood Urea Nitrogen 11 mg/dl (7-17); Calcium 9.2 mg/dl (8.4-10.2); Carbon Dioxide 29 mmol/L (22.0-30.0); Chloride 101 mmol/L (98-107); Cholesterol 137 mg/dl (140-200); Estimated Glomerular Filt Rate 100 ml/min (>60); GFR (African American) 121 ML/MIN (>60); Globulin 2.6 g/dL (1.3-3.2); Glucose 154 mg/dl (74-100); HDL Cholesterol 45 mg/dl (40-60); Potassium 3.8 mmoL/L (3.5-5.1); Sodium 136 mmol/L (136-145); Total Protein,Serum 6.6 g/dl (6.3-8.2); Triglycerides 124 mg/dl (30-150); VLDL Cholesterol 25 mg/dL (0-40)
[2021-09-04 17:08] LABS: Bilirubin,Total < 0.1 mg/dl (0.2-1.3)
[2021-09-04 17:17] LABS: Direct LDL Cholesterol 66.85 mg/dL (100-129)
[2021-09-04 17:44] LABS: Hemoglobin A1C 7.4 % (4.0-6.0)
== END ==
PROVIDERS: Visit Provider Internal Medicine Adolescent Medicine
DX: E11.9 Type 2 diabetes mellitus without complications (principal); E78.5 Hyperlipidemia, unspecified; J45.51 Severe persistent asthma with (acute) exacerbation; Z79.84 Long term (current) use of oral hypoglycemic drugs
CPT/HCPCS: 36415; 80053; 80061; 83036; 85025

== ENCOUNTER → 2021-10-28 15:25 | Outpatient (CLI) | payer MEDICARE, SELFPAY | PROVIDERS: PCP Internal Medicine Adolescent Medicine; Visit Provider Surgery | DX: Z01.812 Encounter for preprocedural laboratory examination (principal); Z20.822 Contact with and (suspected) exposure to COVID-19; Z12.11 Encounter for screening for malignant neoplasm of colon | CPT/HCPCS: C9803; U0003; U0005 ==

== ENCOUNTER 2021-10-31 10:15 | Day surgery (SDC) | payer MEDICARE, SELFPAY ==
[2021-10-29 11:03] VITALS: BMI 28.1
[2021-10-31 10:44] VITALS: BP 141/70; PULSE 70; RESP 16; TEMP 36.5; O2SAT 99
[2021-10-31 11:03] VITALS: O2SAT 99
[2021-10-31 11:05] LABS: POC Glucose,Bedside 117 (70-110)
--- NOTE | 2021-10-31 11:18 | HMH.ANESCL ---
[facility] Anesthesia Checklist - Patient Identification Patient Identification: Arm Band - Structural Data Admitted From: Home Planned Operative Procedure/s: colonoscopy Consent for Planned Operative Procedure(s) Verified: Yes Verified Documents: Surgical Consent, History and Physical - NPO Status Verified Time NPO: 07:30 (bowel prep) - Additional verifications Anesthesia Reactions: No - Airway Assessment C-Spine Mobility Assessed: Yes (mp2) TMJ Mobility Assessed: Yes Dentition: Good Dentition - Neurological Assessment Level of Consciousness: Awake, Alert - Anesthesia Plan Anesthesia Risk discussed: Yes Anesthesia Plan: Verified ASA Class: II Anesthesia Type: MAC [facility] History I have reviewed the patient's past medical history: Yes Medical History: Reports:: Asthma, Diabetes Mellitus Type 2, Gastroesophageal Reflux Disease(GERD), Hyperlipidemia, Hypertension Denies:: Cancer, MRSA, Seizures *Have you ever received a pneumonia vaccine?: Yes *Have you received a flu vaccine this season?: Yes Other Medical History: Reports: Other Anesthesia experience/problems:: nac Laterality Cases: Bilateral: Tonsillectomy Other Surgeries: Yes: Cholecystectomy, Colonoscopy, Other Amputation: No Fractures: No - *Social History Smoking Status: Never smoker Alcohol Intake: never Alcohol Intake Frequency:: other Substance Use Type: denies use *Occupational Status:: retired Household Members: spouse *Travel in the last 8 weeks: Inside the [facility] Family Hx:: Coronary Artery Disease, Diabetes, Heart Attack, Hyperlipidemia, Hypertension [employer] 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
[2021-10-31 11:45] VITALS: BP 111/58; PULSE 79; RESP 18; TEMP 36.2; O2SAT 94
--- NOTE | 2021-10-31 11:48 | HMH.SCOPE ---
- Procedure: Date: 10/31/21 Patient Date of :: 1955 Procedure Performed:: Total colonoscopy to terminal ileum with polypectomy using snare Indications:: Patient is a 65-year-old female. She has family history of colon cancer in her paternal grandfather. She had undergone colonoscopy in 2007 which revealed adenomatous polyp. Colonoscopy in 2010 was negative for adenomatous polyps. Colonoscopy 2017 revealed minimal diverticulosis. Due to family history of colon cancer she was scheduled for follow-up colonoscopy. Performing Provider:: Steve Villeda MD Referring Provider:: Papito Escamilla MD Sedation:: MAC sedation Procedure:: Patient was taken to endoscopy procedure room. She was positioned in lateral decubitus position. Adequate intravenous sedation was achieved with anesthesia titration propofol. Variable stiffness Olympus colonoscope was inserted via the anus. It was advanced to the cecum. Colonic preparation was good. There was some particulate liquid stool but this was able to be cleared. Ileocecal valve and appendiceal orifice were clearly identified. Colonoscope was advanced into the terminal ileum which appeared grossly normal. Within the cecum there is a small 3 to 4 mm adenomatous appearing polyp removed with cold snare. Colonoscope was withdrawn through the colon. In the proximal transverse colon there was a tiny diminutive approximately 3 mm polyp removed with cold snare with residual potential polypoid tissue removed with biopsy forceps. In the mid transverse colon there is a tiny diminutive polyp possibly hyperplastic removed with snare with residual polyp removed with biopsy forceps. She had left-sided sigmoid diverticulosis. Retroflexion within the rectum revealed minimal internal hemorrhoids. Colonoscope was withdrawn. Findings:: Adenomatous appearing cecal polyp Adenomatous appearing proximal transverse colon polyp Possible hyperplastic mid transverse colon polyp Left-sided descending colon Sigmoid diverticulosis Minimal internal hemorrhoids Recommendations:: Follow-up colonoscopy pending pathology, possibly 3 to 5 years Complications:: None immediately apparent Estimated blood obtained (mL): 2
[2021-10-31 11:55] VITALS: BP 123/68; PULSE 74; RESP 18; O2SAT 97
[2021-10-31 12:05] VITALS: BP 135/78; PULSE 57; RESP 18; O2SAT 100
[2021-10-31 12:10] VITALS: BP 140/63; PULSE 53; RESP 18; O2SAT 100
== END 2021-10-31 12:22 | disposition home or self-care (01) ==
LOC: OUTP 10:16
PROVIDERS: PCP Internal Medicine Adolescent Medicine; Visit Provider Surgery
PROC: 0DJD8ZZ Inspection of Lower Intestinal Tract, Via Natural or Artificial Opening Endoscopic (ICD-10-PCS; principal; 2021-10-31 11:30)
DX: K63.5 Polyp of colon (principal); E11.9 Type 2 diabetes mellitus without complications; K21.9 Gastro-esophageal reflux disease without esophagitis; E78.5 Hyperlipidemia, unspecified; J45.909 Unspecified asthma, uncomplicated; I10 Essential (primary) hypertension; Z79.4 Long term (current) use of insulin; Z79.899 Other long term (current) drug therapy
CPT/HCPCS: 45385; 82962; 88305

== ENCOUNTER → 2021-12-12 11:38 | Outpatient (CLI) | payer MEDICARE, SELFPAY ==
--- NOTE | 2021-12-12 11:39 | CA_ITS ---
APPROVED REPORT Exam: Exercise Treadmill Technologist: Shonda Marquez, Ht: 5 ft 4 in Wt: 181 lbs BSA: 1.88 m2 HR: 72 bpm BP: 129/73 mmHg Rhythm: SR Medical History Medical History: HTN, Hyperlipidemia, Diabetes Medications: Metformin,,,,, Losartan,,,,, Crestor,,,,, INSULIN,,,,, Albuterol,,,,, Singulair,,,,, Flovent,,,,, Sitagliptin,,,,, Cardiac Risk Factors: HTN, Hyperlipidemia, Diabetes (insulin), FHX of CAD Stress Test Details Test: Martell HR Resting HR: 82 bpm Max Heart Rate (APMHR): 152 bpm Max HR Achieved: 166 bpm Target HR (85% APMHR): 129 bpm % of APMHR: 109 Recovery HR: 146 bpm BP Resting BP: 130/75 mmHg Max BP: 198/76 mmHg Recovery BP: 198.0/76.0 mmHg ECG Resting ECG: SR Clinical Exercise duration: 10:01 min Highest Stage Achieved: Exercise capacity: 12.8 METs Stress ECG Conclusion During martell protocol pt experinced SOA with exertion. No CP noted. Ventricular couplet noted. Test Summary REST . . . . . . . Sitting REST . . . . . . . Standing REST 09:10 0.0 0.0 82 . 130/ 75 . . Stage 1 01:00 10.0 1.7 112 . . . . Stage 1 02:00 10.0 1.7 126 . . . . Stage 1 03:00 10.0 1.7 121 . 160/ 78 . . Stage 2 01:00 12.0 2.5 132 . . . . Stage 2 02:00 12.0 2.5 140 . . . . Stage 2 03:00 12.0 2.5 144 . 172/ 79 . . Stage 3 01:00 14.0 3.4 149 . . . . Stage 3 02:00 14.0 3.4 155 . . . . Stage 3 03:00 14.0 3.4 155 . 184/ 81 . . Stage 4 01:00 16.0 4.2 127 . . . . Stage 4 01:01 16.0 4.2 129 . . . Stop exercise at 10:01 RECOVERY 01:00 0.0 0.0 144 . 198/ 76 . . RECOVERY 02:00 0.0 0.0 121 . 198/ 76 . . RECOVERY 03:00 0.0 0.0 106 . 198/ 76 . . RECOVERY 04:00 0.0 0.0 102 . 171/ 82 . . RECOVERY 05:00 0.0 0.0 101 . 164/ 89 . . RECOVERY 06:00 0.0 0.0 98 . 140/ 67 . . Electronically signed by : Maurice Herr MD 12/12/2021 14:16:33
--- NOTE | 2021-12-12 11:53 | NM_ITS ---
APPROVED REPORT Exam: Nuclear Stress Test Indication: D.M., HYPERLIPIDEMIA, FM HX., ABN EKG Patient Location: Outpatient Stress Tech: Shonda Marquez [place] Tech:KAMINI Tran RT (R)(N)(M) Ht: 5 ft 5 in Wt: 179 lbs Bra Size: C HR: 72 bpm BP: 129/73 mmHg BSA: 1.89 m2 TID: 1.09 BMI: 29.7 History: D.M., HYPERLIPIDEMIA, FM HX., ABN EKG Procedure: Patient exercised on Juan Antonio protocol 10:00 minutes and sec, resting heart rate 72 bpm, resting blood pressure 129/73 mmHg, with exercise maximum heart rate achived was 166 bpm which is 109 % of the maximum predicted heart rate and blood pressure was 184/87 mmHg. Test was stopped due to FATIGUE. Patient denied any complaint of chest pain. Patient has good exercise capacity, achieved 12.8 METs of workload on treadmill, the blood pressure response to exercise was Adequate. Electrocardiogram Resting electrocardiogram showed sinus rhythm, with exercise there is less than 1.[address] segment depression noted from the baseline EKG. The EKG portion of the exercise Myoview is negative for ischemia. Cardiac Stress and Resting SPECT Images: Cardiac Stress and Resting SPECT images were obtained using technetium 99m Myoview 31.2 mCi stress and 10.56 mCi at rest. Gated SPECT analysis of segmental wall motion and calculation of the ejection fraction also done. Prone images were also obtained. Cardiac stress and rest SPECT images show uniform myocardial activity without segmental perfusion abnormality, computer derived ejection fraction is 63% with no regional wall motion abnormality, right ventricle is normal size and contractility. Conclusion: 1. The EKG portion of the exercise Myoview is negative for ischemia, patient has good exercise capacity achieved 12.8 METs of workload on treadmill, the blood pressure response to exercise was adequate, there was no exercise-induced chest discomfort. 2. No scintigraphic evidence of reversible ischemia seen, compared right ejection fraction 63% with no regional wall motion abnormality, right ventricle is normal size and contractility. 3. Normal exercise Myoview study. Electronically signed by : Maurice Herr MD 12/13/2021 12:07:24
== END ==
PROVIDERS: PCP Internal Medicine Adolescent Medicine; Visit Provider Physician Assistant
DX: R06.09 Other forms of dyspnea; R94.31 Abnormal electrocardiogram [ECG] [EKG]; I51.89 Other ill-defined heart diseases; Z82.49 Family history of ischemic heart disease and other diseases of the circulatory system
CPT/HCPCS: 78452; 93017; A9502

== ENCOUNTER → 2022-02-06 14:04 | Outpatient (CLI) | payer MEDICARE, SELFPAY ==
[2022-02-06 15:39] LABS: Basophils # 0.1 K/mm3 (0-0.2); Basophils % 0.9 % (0.1-2.0); Eosinophils # 0.2 K/mm3 (0.0-0.4); Eosinophils % 2.2 % (0.1-12.0); Hematocrit 41.8 % (37.0-47.0); Hemoglobin 13.4 g/dL (12.2-16.2); Lymphocytes % 31.7 % (10-50); Mean Corpuscular Hemoglobin 27.2 pg (27.0-31.2); Mean Corpuscular Volume 85.1 fl (81-99); Mean Platelet Volume 9.6 fl (7.4-10.4); Monocytes # 0.5 K/mm3 (0.1-1.0); Monocytes % 5.1 % (1.7-9.3); Neutrophils # 5.6 K/mm3 (1.8-7.8); Neutrophils % 60.1 % (37.0-80.0); Platelet Count 328 K/mm3 (142-424); Red Blood Count 4.91 M/mm3 (4.20-5.40); Red Cell Distribution Width 15.4 % (11.5-17.5); White Blood Count 9.4 K/mm3 (4.8-10.8)
[2022-02-06 16:35] LABS: Hemoglobin A1C 7.3 % (4.0-6.0)
[2022-02-06 16:52] LABS: Alanine Aminotransferase 19 U/L (12-78); Albumin Level 3.9 g/dl (3.5-5.0); Albumin/Globulin Ratio 1.4 (1.1-1.8); Alkaline Phosphatase 130 U/L (38-126); Anion Gap 15.3 mEq/L (5-15); Aspartate Amino Transferase 30 U/L (14-36); Bilirubin,Total 0.3 mg/dl (0.2-1.3); Blood Urea Nitrogen 14 mg/dl (7-17); Calcium 8.7 mg/dl (8.4-10.2); Carbon Dioxide 26 mmol/L (22.0-30.0); Chloride 101 mmol/L (98-107); Chol/HDL Ratio 3.5 (1-3.5); Cholesterol 150 mg/dl (140-200); Estimated Glomerular Filt Rate 83 ml/min (>60); GFR (African American) 101 ML/MIN (>60); Globulin 2.7 g/dL (1.3-3.2); Glucose 174 mg/dl (74-100); HDL Cholesterol 43 mg/dl (40-60); Potassium 4.3 mmoL/L (3.5-5.1); Sodium 138 mmol/L (136-145); Total Protein,Serum 6.6 g/dl (6.3-8.2); Triglycerides 242 mg/dl (30-150); VLDL Cholesterol 48 mg/dL (0-40)
== END ==
PROVIDERS: PCP Internal Medicine Adolescent Medicine; Visit Provider Internal Medicine Adolescent Medicine
DX: E11.9 Type 2 diabetes mellitus without complications (principal); E78.5 Hyperlipidemia, unspecified; J45.41 Moderate persistent asthma with (acute) exacerbation; Z79.4 Long term (current) use of insulin
CPT/HCPCS: 36415; 80053; 80061; 83036; 85025

== ENCOUNTER → 2022-06-13 08:03 | Outpatient (CLI) | payer MEDICARE, SELFPAY ==
[2022-06-13 08:37] LABS: Basophils # 0.1 K/mm3 (0-0.2); Basophils % 1.5 % (0.1-2.0); Eosinophils # 0.3 K/mm3 (0.0-0.4); Eosinophils % 3.7 % (0.1-12.0); Hematocrit 43.1 % (37.0-47.0); Lymphocytes # 2.6 K/mm3 (0.7-4.5); Lymphocytes % 29.4 % (10-50); Mean Corpuscular HGB Conc 32.5 g/dL (31.8-35.4); Mean Corpuscular Hemoglobin 28.2 pg (27.0-31.2); Mean Corpuscular Volume 86.7 fl (81-99); Monocytes # 0.4 K/mm3 (0.1-1.0); Neutrophils # 5.3 K/mm3 (1.8-7.8); Neutrophils % 60.4 % (37.0-80.0); Platelet Count 349 K/mm3 (142-424); Red Blood Count 4.98 M/mm3 (4.20-5.40); Red Cell Distribution Width 13.5 % (11.5-17.5); White Blood Count 8.7 K/mm3 (4.8-10.8)
[2022-06-13 08:46] LABS: Hemoglobin A1C 7.1 % (4.0-6.0)
[2022-06-13 08:55] LABS: Alanine Aminotransferase 17 U/L (12-78); Albumin Level 4.2 g/dl (3.5-5.0); Albumin/Globulin Ratio 1.6 (1.1-1.8); Alkaline Phosphatase 90 U/L (38-126); Anion Gap 7.6 mEq/L (5-15); Aspartate Amino Transferase 28 U/L (14-36); Bilirubin,Total 0.5 mg/dl (0.2-1.3); Blood Urea Nitrogen 11 mg/dl (7-17); Calcium 9.1 mg/dl (8.4-10.2); Carbon Dioxide 28 mmol/L (22.0-30.0); Chloride 110 mmol/L (98-107); Chol/HDL Ratio 3.3 (1-3.5); Cholesterol 153 mg/dl (140-200); Estimated Glomerular Filt Rate 99 ml/min (>60); GFR (African American) 120 ML/MIN (>60); Globulin 2.7 g/dL (1.3-3.2); Glucose 146 mg/dl (74-100); HDL Cholesterol 46 mg/dl (40-60); Potassium 4.6 mmoL/L (3.5-5.1); Sodium 141 mmol/L (136-145); Total Protein,Serum 6.9 g/dl (6.3-8.2); Triglycerides 119 mg/dl (30-150); VLDL Cholesterol 24 mg/dL (0-40)
[2022-06-13 09:05] LABS: Direct LDL Cholesterol 81.05 mg/dL (100-129)
== END ==
PROVIDERS: PCP Internal Medicine Adolescent Medicine; Visit Provider Internal Medicine Adolescent Medicine
DX: E11.9 Type 2 diabetes mellitus without complications (principal); E78.5 Hyperlipidemia, unspecified; J45.30 Mild persistent asthma, uncomplicated; Z79.84 Long term (current) use of oral hypoglycemic drugs
CPT/HCPCS: 36415; 80053; 80061; 83036; 85025

== ENCOUNTER → 2022-12-14 07:02 | Outpatient (CLI) | payer MEDICARE, SELFPAY ==
[2022-12-14 07:59] LABS: Chloride 105 mmol/L (98-107); Potassium 4.4 mmoL/L (3.5-5.1); Sodium 140 mmol/L (136-145)
[2022-12-14 08:02] LABS: Alanine Aminotransferase 26 U/L (12-78); Albumin Level 3.8 g/dl (3.5-5.0); Albumin/Globulin Ratio 1.4 (1.1-1.8); Alkaline Phosphatase 106 U/L (38-126); Anion Gap 12.4 mEq/L (5-15); Aspartate Amino Transferase 35 U/L (14-36); Bilirubin,Total 0.4 mg/dl (0.2-1.3); Blood Urea Nitrogen 14 mg/dl (7-17); Carbon Dioxide 27 mmol/L (22.0-30.0); Cholesterol 171 mg/dl (140-200); Estimated Glomerular Filt Rate 83 ml/min (>60); GFR (African American) 100 ML/MIN (>60); Globulin 2.7 g/dL (1.3-3.2); Total Protein,Serum 6.5 g/dl (6.3-8.2); Triglycerides 159 mg/dl (30-150); VLDL Cholesterol 32 mg/dL (0-40)
[2022-12-14 08:03] LABS: Calcium 9.4 mg/dl (8.4-10.2); Glucose 166 mg/dl (74-100); HDL Cholesterol 43 mg/dl (40-60)
[2022-12-14 09:23] LABS: Hemoglobin A1C 7.8 % (4.0-6.0)
== END ==
PROVIDERS: PCP Internal Medicine Adolescent Medicine; Visit Provider Internal Medicine Adolescent Medicine
DX: E11.9 Type 2 diabetes mellitus without complications (principal); E78.5 Hyperlipidemia, unspecified; Z79.4 Long term (current) use of insulin
CPT/HCPCS: 36415; 80053; 80061; 83036

== ENCOUNTER → 2023-04-10 08:04 | Outpatient (CLI) | payer MEDICARE, SELFPAY ==
[2023-04-10 09:04] LABS: Chloride 107 mmol/L (98-107); Potassium 4.4 mmoL/L (3.5-5.1); Sodium 140 mmol/L (136-145)
[2023-04-10 09:06] LABS: Alanine Aminotransferase 26 U/L (12-78); Albumin Level 4.3 g/dl (3.5-5.0); Albumin/Globulin Ratio 1.5 (1.1-1.8); Alkaline Phosphatase 93 U/L (38-126); Anion Gap 9.4 mEq/L (5-15); Aspartate Amino Transferase 38 U/L (14-36); Bilirubin,Total 0.5 mg/dl (0.2-1.3); Blood Urea Nitrogen 15 mg/dl (7-17); Carbon Dioxide 28 mmol/L (22.0-30.0); Estimated Glomerular Filt Rate 99 ml/min (>60); GFR (African American) 120 ML/MIN (>60); Globulin 2.8 g/dL (1.3-3.2); Total Protein,Serum 7.1 g/dl (6.3-8.2)
[2023-04-10 09:07] LABS: Chol/HDL Ratio 3.7 (1-3.5); Cholesterol 161 mg/dl (140-200); Glucose 124 mg/dl (74-100); HDL Cholesterol 43 mg/dl (40-60); Triglycerides 107 mg/dl (30-150); VLDL Cholesterol 21 mg/dL (0-40)
[2023-04-10 09:18] LABS: Direct LDL Cholesterol 90.59 mg/dL (100-129)
[2023-04-10 09:45] LABS: Hemoglobin A1C 6.6 % (4.0-6.0)
[2023-04-10 10:08] LABS: Basophils # 0.1 K/mm3 (0-0.2); Basophils % 1.6 % (0.1-2.0); Eosinophils # 0.5 K/mm3 (0.0-0.4); Eosinophils % 5.8 % (0.1-12.0); Hematocrit 42.4 % (37.0-47.0); Hemoglobin 14.5 g/dL (12.2-16.2); Lymphocytes % 32.5 % (10-50); Mean Corpuscular HGB Conc 34.1 g/dL (31.8-35.4); Mean Corpuscular Hemoglobin 29.7 pg (27.0-31.2); Mean Corpuscular Volume 87.1 fl (81-99); Monocytes # 0.6 K/mm3 (0.1-1.0); Monocytes % 6.1 % (1.7-9.3); Neutrophils # 4.9 K/mm3 (1.8-7.8); Platelet Count 328 K/mm3 (142-424); Red Blood Count 4.87 M/mm3 (4.20-5.40); Red Cell Distribution Width 13.6 % (11.5-17.5); White Blood Count 9.1 K/mm3 (4.8-10.8)
== END ==
LOC: LAB 08:05
PROVIDERS: PCP Internal Medicine Adolescent Medicine; Visit Provider Internal Medicine Adolescent Medicine
DX: E78.5 Hyperlipidemia, unspecified; E11.69 Type 2 diabetes mellitus with other specified complication; Z79.4 Long term (current) use of insulin
CPT/HCPCS: 36415; 80053; 80061; 83036; 85025

== ENCOUNTER 2023-06-22 09:13 | Outpatient (CLI) | payer MEDICARE, SELFPAY ==
--- NOTE | 2023-06-22 09:18 | XR_ITS ---
FINAL REPORT TECHNIQUE: Bone densitometry calculations of the lumbar spine and left hip were obtained. CLINICAL HISTORY: POST MENOPAUSAL COMPARISON: None FINDINGS: Using L1-4, the bone mineral density of the spine is 0.97 g/cm2, corresponding to T-score of -0.7 and a Z score of 1.4. This is within the range of normal. Using the left hip, the bone mineral density of the femoral neck is 0.65 g/cm2, corresponding to a T-score of -1.8 and a Z-score of 0. This is within the range of osteopenia. NOTE: T-score: Standard deviation compared with peak bone mass of young adult mean. *Following the recommendations of the International Society of Bone densitometry, classification of hip BMD is based on the lower of two T-scores; total hip or femoral neck. IMPRESSION: 1. Bone mineral density of the lumbar spine within the range of normal. 2. Bone mineral density of the left femoral neck within the range of osteopenia. Reviewed, Interpreted and Dictated by Harini Carlin MD Transcribed by Nita Simon Authenticated and [facility]
== END 2023-06-22 23:59 ==
PROVIDERS: PCP Internal Medicine Adolescent Medicine; Visit Provider Obstetrics & Gynecology Gynecology
DX: Z13.820 Encounter for screening for osteoporosis; Z78.0 Asymptomatic menopausal state
CPT/HCPCS: 77080

== ENCOUNTER 2023-10-09 07:32 | Outpatient (CLI) | payer MEDICARE, SELFPAY ==
[2023-10-09 08:07] LABS: Basophils # 0.1 K/mm3 (0-0.2); Basophils % 1.2 % (0.1-2.0); Eosinophils # 0.5 K/mm3 (0.0-0.4); Eosinophils % 6.1 % (0.1-12.0); Hematocrit 41.6 % (37.0-47.0); Hemoglobin 13.7 g/dL (12.2-16.2); Lymphocytes # 2.9 K/mm3 (0.7-4.5); Lymphocytes % 33.5 % (10-50); Mean Corpuscular Hemoglobin 31.1 pg (27.0-31.2); Mean Corpuscular Volume 94.1 fl (81-99); Mean Platelet Volume 8.6 fl (7.4-10.4); Monocytes # 0.5 K/mm3 (0.1-1.0); Monocytes % 5.2 % (1.7-9.3); Neutrophils # 4.7 K/mm3 (1.8-7.8); Neutrophils % 53.9 % (37.0-80.0); Platelet Count 328 K/mm3 (142-424); Red Blood Count 4.42 M/mm3 (4.20-5.40); White Blood Count 8.7 K/mm3 (4.8-10.8)
[2023-10-09 08:52] LABS: Chloride 106 mmol/L (98-107); Potassium 4.5 mmoL/L (3.5-5.1); Sodium 139 mmol/L (136-145)
[2023-10-09 08:55] LABS: Alanine Aminotransferase 24 U/L (12-78); Albumin Level 3.9 g/dl (3.5-5.0); Albumin/Globulin Ratio 1.4 (1.1-1.8); Alkaline Phosphatase 86 U/L (38-126); Anion Gap 8.5 mEq/L (5-15); Aspartate Amino Transferase 35 U/L (14-36); Bilirubin,Total 0.3 mg/dl (0.2-1.3); Blood Urea Nitrogen 9 mg/dl (7-17); Calcium 9.4 mg/dl (8.4-10.2); Carbon Dioxide 29 mmol/L (22.0-30.0); Chol/HDL Ratio 3.9 (1-3.5); Cholesterol 166 mg/dl (140-200); Estimated Glomerular Filt Rate 99 ml/min (>60); GFR (African American) 120 ML/MIN (>60); Globulin 2.7 g/dL (1.3-3.2); Glucose 139 mg/dl (74-100); HDL Cholesterol 43 mg/dl (40-60); Total Protein,Serum 6.6 g/dl (6.3-8.2); Triglycerides 139 mg/dl (30-150); VLDL Cholesterol 28 mg/dL (0-40)
[2023-10-09 09:06] LABS: Direct LDL Cholesterol 92.73 mg/dL (100-129)
[2023-10-09 10:02] LABS: Hemoglobin A1C 6.4 % (4.0-6.0)
[2023-10-09 10:13] LABS: 25-OH Vitamin D, Total 50.1 ng/mL (30-100)
[2023-10-09 11:15] LABS: Vitamin B12 174 pg/mL (239-931)
== END 2023-10-09 23:59 | disposition home or self-care (01) ==
LOC: LAB 07:36
PROVIDERS: PCP Internal Medicine Adolescent Medicine; Visit Provider Internal Medicine Adolescent Medicine
DX: E78.5 Hyperlipidemia, unspecified (principal); K21.9 Gastro-esophageal reflux disease without esophagitis; J45.41 Moderate persistent asthma with (acute) exacerbation; E11.42 Type 2 diabetes mellitus with diabetic polyneuropathy; E66.9 Obesity, unspecified; Z68.31 Body mass index [BMI] 31.0-31.9, adult
CPT/HCPCS: 36415; 80053; 80061; 82306; 82607; 82728; 83036; 85025

== ENCOUNTER 2024-01-29 07:54 | Outpatient (CLI) | payer MEDICARE, SELFPAY ==
[2024-01-29 09:49] LABS: Vitamin B12 369 pg/mL (239-931)
== END 2024-01-29 23:59 | disposition home or self-care (01) ==
PROVIDERS: PCP Internal Medicine Adolescent Medicine; Visit Provider Internal Medicine Adolescent Medicine
DX: G60.9 Hereditary and idiopathic neuropathy, unspecified (principal)
CPT/HCPCS: 36415; 82607

== ENCOUNTER 2024-04-01 07:48 | Outpatient (CLI) | payer MEDICARE, SELFPAY ==
[2024-04-01 08:40] LABS: Basophils # 0.1 K/mm3 (0-0.2); Basophils % 0.9 % (0.1-2.0); Eosinophils # 0.5 K/mm3 (0.0-0.4); Eosinophils % 4.6 % (0.1-12.0); Hematocrit 41.9 % (37.0-47.0); Hemoglobin 14.1 g/dL (12.2-16.2); Lymphocytes # 3.2 K/mm3 (0.7-4.5); Lymphocytes % 31.7 % (10-50); Mean Corpuscular HGB Conc 33.6 g/dL (31.8-35.4); Mean Corpuscular Hemoglobin 30.3 pg (27.0-31.2); Mean Corpuscular Volume 90.3 fl (81-99); Mean Platelet Volume 8.3 fl (7.4-10.4); Monocytes # 0.5 K/mm3 (0.1-1.0); Monocytes % 5.1 % (1.7-9.3); Neutrophils # 5.8 K/mm3 (1.8-7.8); Neutrophils % 57.7 % (37.0-80.0); Platelet Count 314 K/mm3 (142-424); Red Blood Count 4.64 M/mm3 (4.20-5.40); Red Cell Distribution Width 13.3 % (11.5-17.5)
[2024-04-01 09:22] LABS: Alanine Aminotransferase 19 U/L (12-78); Albumin Level 4.3 g/dl (3.5-5.0); Albumin/Globulin Ratio 1.9 (1.1-1.8); Alkaline Phosphatase 77 U/L (38-126); Anion Gap 11.5 mEq/L (5-15); Aspartate Amino Transferase 33 U/L (14-36); Bilirubin,Total 0.6 mg/dl (0.2-1.3); Blood Urea Nitrogen 12 mg/dl (7-17); Calcium 9.6 mg/dl (8.4-10.2); Carbon Dioxide 29 mmol/L (22.0-30.0); Chloride 104 mmol/L (98-107); Chol/HDL Ratio 3.2 (1-3.5); Cholesterol 146 mg/dl (140-200); Estimated Glomerular Filt Rate 83 ml/min (>60); GFR (African American) 100 ML/MIN (>60); Globulin 2.3 g/dL (1.3-3.2); Glucose 108 mg/dl (74-100); HDL Cholesterol 46 mg/dl (40-60); Potassium 4.5 mmoL/L (3.5-5.1); Sodium 140 mmol/L (136-145); Total Protein,Serum 6.6 g/dl (6.3-8.2); Triglycerides 114 mg/dl (30-150); VLDL Cholesterol 23 mg/dL (0-40)
[2024-04-01 09:28] LABS: Hemoglobin A1C 6.5 % (4.0-6.0)
[2024-04-01 09:33] LABS: Direct LDL Cholesterol 75.52 mg/dL (100-129)
[2024-04-01 09:52] LABS: Thyroid Stimulating Hormone 1.38 uIU/mL (0.465-4.68)
== END 2024-04-01 23:59 | disposition home or self-care (01) ==
PROVIDERS: PCP Internal Medicine Adolescent Medicine; Visit Provider Internal Medicine Adolescent Medicine
DX: J45.30 Mild persistent asthma, uncomplicated (principal); E11.69 Type 2 diabetes mellitus with other specified complication
CPT/HCPCS: 36415; 80053; 80061; 83036; 84443; 85025

== ENCOUNTER 2024-09-30 07:49 | Outpatient (CLI) | payer MEDICARE, SELFPAY ==
--- OUTSIDE RECORDS SUMMARY | 2024-09-30 07:53 | XMS_ITS | Clinical Summary ---
Author Organization [facility] Address [address] [place] [address] Care Team Providers Care Boat Assembler Name Role Phone Papito Escamilla MD Primary Care Provider [phone] Encounters Date Type Department Care Team Description 07/11/2024 Travel from Last 3 Months Social History Tobacco Use Types Packs/Day Years Used Date Smoking Tobacco: Never Assessed Comments Unknown Sex and Gender Information Value Date Recorded Sex Assigned at Not on file Legal Sex Female 8:01 PM EDT Gender Identity Not on file Sexual Orientation Not on file Plan of Treatment Upcoming Encounters Date Type Department Care Team (Late st Contact Info) Description 07/04/2025 1:00 PM EDT Ovarian Cancer Screening [facility] Gynecology [address] [place] [address] Health Maintenance Due Date Last Done Comments [facility]-Bone Density Scan 1955 [facility]-Depression Screening 1955 [facility]-Hepatitis C Screening 1955 [facility]-Medicare Annual Wellness (AWV) 1955 [facility]-Infant/Child/Adol SDOH Screenings 1955 [facility]- SDOH Screenings 11/14/1971 [facility]-Adult SDOH Screenings 11/14/1971 [facility]-DTaP,Tdap,and Td Vaccines (1 - Tdap) 1972 CT Colonography 1998 Colonoscopy 1998 FIT-DNA 1998 FIT 1998 FOBT 1998 Sigmoidoscopy 1998 [facility]-Colorectal Cancer Screening 1998 [facility]-Pneumococcal Vaccine: 50+ Years (1 of 1 - PCV) 11/14/2003 [id number] Vaccine (2023- season) 2023 02/05/2023, 02/12/2022, 02/28/2021, Additional history exists [facility]-Breast Cancer Screening 10/21/202509/25, 10/22/2023, 10/20/2022, Additional history exists [facility]-RSV Vaccine: 60+ Years or (1 - 1-dose 75+ series) 2028 [facility]-Hepatitis A Vaccines Aged Out 10/14/2018, 03/26 No longer eligible based on patient's age to complete this topic [facility]-Zoster Vaccines Completed 10/14/2018, [facility]-Influenza Vaccine Completed 01/31/2024, 021 HPV Vaccines Aged Out No longer eligi ble based on patient's age to complete this topic [facility]-HIB Vaccines Aged Out No longer e ligible based on patient's age to complete this topic [facility]-IPV Vaccines Aged Out No longer e ligible based on patient's age to complete this topic [facility]-Rotavirus Vaccines Aged Out No lo nger eligible based on patient's age to complete this topic Insurance [place], [place] [id number] MEDICARE Care Teams Boat Assembler Relationship Specialty Start Date End Date Papito Escamilla MD [address] [place] [id number] PCP - General 07/11/21
[2024-09-30 08:41] LABS: Basophils # 0.1 K/mm3 (0-0.2); Basophils % 0.9 % (0.1-2.0); Eosinophils # 0.4 Kmm3 (0.0-0.4); Eosinophils % 4.6 % (0.1-12.0); Hematocrit 42.9 % (37.0-47.0); Hemoglobin 14.1 g/dL (12.2-16.2); Immature Granulocytes # 0.02 10^3uL; Immature Granulocytes % 0.3 %; Lymphocytes # 2.4 K/mm3 (0.7-4.5); Lymphocytes % 31.3 % (10-50); Mean Corpuscular HGB Conc 32.9 g/dL (31.8-35.4); Mean Corpuscular Hemoglobin 28.1 pg (27.0-31.2); Mean Corpuscular Volume 85.5 fl (81-99); Mean Platelet Volume 10.4 fl (7.4-10.4); Monocytes # 0.5 K/mm3 (0.1-1.0); Monocytes % 6.7 % (1.7-9.3); Neutrophils # 4.4 K/mm3 (1.8-7.8); Neutrophils % 56.2 % (37.0-80.0); Nucleated Red Blood Cells # 0 10^3/uL; Nucleated Red Blood Cells % 0 %; Platelet Count 279 K/mm3 (142-424); Red Blood Count 5.02 M/mm3 (4.20-5.40); Red Cell Distribution Width 15.3 % (11.5-17.5); Red Cell Distribution Width-SD 47.9 fL; White Blood Count 7.8 K/mm3 (4.8-10.8)
[2024-09-30 10:06] LABS: Alanine Aminotransferase 18 U/L (12-78); Albumin Level 4.1 g/dl (3.5-5.0); Albumin/Globulin Ratio 1.7 (1.1-1.8); Alkaline Phosphatase 76 U/L (38-126); Anion Gap 9.5 mEq/L (5-15); Aspartate Amino Transferase 30 U/L (14-36); Bilirubin,Total 0.6 mg/dl (0.2-1.3); Blood Urea Nitrogen 13 mg/dl (7-17); Carbon Dioxide 27 mmol/L (22.0-30.0); Chloride 106 mmol/L (98-107); Estimated Glomerular Filt Rate 99 ml/min (>60); GFR (African American) 120 ML/MIN (>60); Globulin 2.4 g/dL (1.3-3.2); Glucose 135 mg/dl (74-100); Potassium 4.5 mmoL/L (3.5-5.1); Sodium 138 mmol/L (136-145); Total Protein,Serum 6.5 g/dl (6.3-8.2)
[2024-09-30 10:44] LABS: Hemoglobin A1C 6.7 % (4.0-6.0)
== END 2024-09-30 23:59 | disposition home or self-care (01) ==
LOC: LAB 07:51
PROVIDERS: PCP Internal Medicine Adolescent Medicine; Visit Provider Internal Medicine Adolescent Medicine
DX: E11.69 Type 2 diabetes mellitus with other specified complication (principal); J45.20 Mild intermittent asthma, uncomplicated
CPT/HCPCS: 36415; 80053; 83036; 85025